=== PATIENT | female | born 1940 | race Caucasian/White ===

== ENCOUNTER 2021-05-20 12:46 | Inpatient (IN) ==
[2021-05-20] MEDS ORDERED: Lactated Ringers 1000 ml BAG 1,000 ML IV ONE (13:32)
[2021-05-20] MEDS ORDERED: Piperacillin/Tazobac ADVAN 3.375 GM in NS 0.9% 100 ml BAG 100 ML IV ONE (13:44)
[2021-05-20] MEDS ORDERED: Iodixanol (CONTRAST) 320 MG/ML 100 ML SDV IV ONE (14:04)
[2021-05-20 14:14] LABS: ABS Lymphocytes 0.8 10^3/ul (1.0-4.8); ABS Monocytes 1.4 10^3/ul (0-0.8); ABS Neutrophils 15.5 10^3/ul (1.5-7.7); Hematocrit 51 % (35-47); Hemoglobin 17.4 g/dL (12.0-16.0); Lymphocyte % 4.5 %; Mean Corpuscular HGB Conc 34 g/dL (31-36); Mean Corpuscular Hemoglobin 31 pg (27-31); Mean Corpuscular Volume 92 fL (80-97); Mean Platelet Volume 8.5 fL (7.4-10.4); Nucleated Red Blood Cells % 0.1; Platelet Count 366 10^3/uL (150-450); Red Blood Count 5.58 10^6 /uL (3.70-4.87); Red Cell Distribution Width 14 % (10-15); White Blood Count 17.7 10^3/uL (3.5-10.8)
[2021-05-20 14:51] LABS: Albumin 4.8 g/dL (3.2-5.2); Albumin/Globulin Ratio 1.9 (1-3); C Reactive Protein 69.67 mg/L (<8.01); Calcium 10.5 mg/dL (8.6-10.3); Globulin 2.5 g/dL (2-4); Potassium 3.7 mmol/L (3.5-5.0); Total Bilirubin 0.8 mg/dL (0.2-1.0); Total Protein 7.3 g/dL (6.4-8.9)
[2021-05-20 15:18] LABS: Activated Partial Thrombo Time 25.9 seconds (26.0-38.0); INR 1.07 (0.86-1.15)
[2021-05-20] MEDS ORDERED: NS 0.9% 1000 ml BAG 1,000 ML IV ONE (15:31)
[2021-05-20] MEDS ORDERED: fentaNYL 100 mcg/2 ml 50 MCG/ML VIAL IV PRN (15:44)
[2021-05-20] MEDS ORDERED: Naloxone 0.4 mg VIAL 0.4 mg/ml 1 ml VIAL IV PRN (15:44)
[2021-05-20] MEDS ORDERED: oxyCODONE/Acetamin 5/325 mg TAB PO PRN (15:44)
[2021-05-20] MEDS ORDERED: Ondansetron 4 mg VIAL 2 MG/ML 2 ml VIAL IV PRN (15:44)
[2021-05-20 16:02] LABS: Rapid COVID-19 Molecular Undetected (Undetected)
[2021-05-20] MEDS ORDERED: Lidocaine 1% VIAL 10 MG/ML VIAL ONE (16:06)
[2021-05-20] MEDS ORDERED: Bupivacaine 0.25% SDV PF 10 ML VIAL INJ ONE (16:07)
[2021-05-20] MEDS ORDERED: Bupivacaine 0.25% w/EPI 10 ML SDV ONE (16:09)
[2021-05-20] MEDS ORDERED: fentaNYL 100 mcg/2 ml 50 MCG/ML VIAL ONE (16:44)
[2021-05-20] MEDS ORDERED: Rocuronium 50 mg VIAL 10 mg/ml 5 ml VIAL (50 mg) ONE (16:44)
[2021-05-20] MEDS ORDERED: Etomidate 20 mg/10 ml 2 MG/ML 10 ml VIAL ONE (16:45)
[2021-05-20] MEDS ORDERED: Etomidate 40 mg/20 ml (2 MG/ML) 20 ml VIAL (40 mg) ONE (16:46)
[2021-05-20] MEDS ORDERED: Propofol 10 MG/ML 20 ML BTL ONE (18:08)
[2021-05-20] MEDS ORDERED: D5W NS 0.9% 20Meq KCL 1000 ml 1,000 ML IV SCH (19:00)
[2021-05-20] MEDS: Acetaminophen IV 1 GM/100ML 100 ML IV SCH (20:57)
[2021-05-20 22:07] LABS: High Sensitivity Troponin 1 Hr 24 pg/mL (<15)
[2021-05-21] MEDS: Acetaminophen IV 1 GM/100ML 100 ML IV SCH ×4 (01:29→19:53)
[2021-05-21 05:15] LABS: Urine Appearance Clear; Urine Bilirubin Negative (Negative); Urine Blood Negative (Negative); Urine Color Yellow; Urine Glucose Negative (Negative); Urine Ketones Negative (Negative); Urine Nitrite Negative (Negative); Urine Protein Negative (Negative); Urine Specific Gravity 1.036 (1.002-1.030); Urine Urobilinogen Negative (Negative)
[2021-05-21 05:46] LABS: ABS Lymphocytes 1.2 10^3/ul (1.0-4.8); ABS Monocytes 0.7 10^3/ul (0-0.8); ABS Neutrophils 8.7 10^3/ul (1.5-7.7); Eosinophil % 0.3 %; Hematocrit 43 % (35-47); Hemoglobin 14.8 g/dL (12.0-16.0); Lymphocyte % 11.1 %; Mean Corpuscular HGB Conc 34 g/dL (31-36); Mean Corpuscular Hemoglobin 32 pg (27-31); Mean Corpuscular Volume 93 fL (80-97); Mean Platelet Volume 8.4 fL (7.4-10.4); Platelet Count 274 10^3/uL (150-450); Red Blood Count 4.68 10^6 /uL (3.70-4.87); Red Cell Distribution Width 14 % (10-15); White Blood Count 10.7 10^3/uL (3.5-10.8)
[2021-05-21] MEDS: Heparin 5000 UNITS/ML 1 mL VIAL SUBCUT SCH ×3 (06:23→21:28)
[2021-05-21] MEDS: D5W NS 0.9% 20Meq KCL 1000 ml 1,000 ML IV SCH (12:16)
[2021-05-21 12:25] LABS: Calcium 8.4 mg/dL (8.6-10.3); Magnesium 2.1 mg/dL (1.9-2.7); Potassium 3.3 mmol/L (3.5-5.0); eGFR CKD-EPI 62.5 (>60)
[2021-05-21] MEDS: Ondansetron 4 mg VIAL 2 MG/ML 2 ml VIAL IV PRN (19:49)
[2021-05-22] MEDS: Acetaminophen IV 1 GM/100ML 100 ML IV SCH ×4 (02:39→21:20)
[2021-05-22] MEDS: D5W NS 0.9% 20Meq KCL 1000 ml 1,000 ML IV SCH ×2 (04:48→19:44)
[2021-05-22] MEDS: Heparin 5000 UNITS/ML 1 mL VIAL SUBCUT SCH ×3 (04:48→21:19)
[2021-05-22 05:00] LABS: ABS Eosinophils 0.1 10^3/ul (0-0.6); ABS Lymphocytes 1.3 10^3/ul (1.0-4.8); ABS Monocytes 0.6 10^3/ul (0-0.8); ABS Neutrophils 5.5 10^3/ul (1.5-7.7); Eosinophil % 1.3 %; Hematocrit 36 % (35-47); Hemoglobin 12.1 g/dL (12.0-16.0); Lymphocyte % 17.4 %; Mean Corpuscular HGB Conc 34 g/dL (31-36); Mean Corpuscular Hemoglobin 32 pg (27-31); Mean Corpuscular Volume 94 fL (80-97); Mean Platelet Volume 8.3 fL (7.4-10.4); Platelet Count 234 10^3/uL (150-450); Red Cell Distribution Width 14 % (10-15); White Blood Count 7.5 10^3/uL (3.5-10.8)
[2021-05-22 05:17] LABS: Calcium 7.8 mg/dL (8.6-10.3); Potassium 3.2 mmol/L (3.5-5.0)
[2021-05-22] MEDS: KCL 10 MEQ/50 ML IVPREMIX 10 MEQ/50 ML BAG IV SCH ×3 (09:31→12:04)
[2021-05-23] MEDS: Acetaminophen IV 1 GM/100ML 100 ML IV SCH ×3 (03:06→16:49)
[2021-05-23] MEDS: Heparin 5000 UNITS/ML 1 mL VIAL SUBCUT SCH ×3 (05:26→23:09)
[2021-05-23 05:55] LABS: ABS Eosinophils 0.2 10^3/ul (0-0.6); ABS Lymphocytes 1.3 10^3/ul (1.0-4.8); ABS Monocytes 0.4 10^3/ul (0-0.8); ABS Neutrophils 3.7 10^3/ul (1.5-7.7); Eosinophil % 3.5 %; Hematocrit 35 % (35-47); Hemoglobin 11.5 g/dL (12.0-16.0); Lymphocyte % 23.2 %; Mean Corpuscular HGB Conc 33 g/dL (31-36); Mean Corpuscular Hemoglobin 31 pg (27-31); Mean Corpuscular Volume 94 fL (80-97); Mean Platelet Volume 8.5 fL (7.4-10.4); Platelet Count 239 10^3/uL (150-450); Red Blood Count 3.66 10^6 /uL (3.70-4.87); Red Cell Distribution Width 13 % (10-15); White Blood Count 5.6 10^3/uL (3.5-10.8)
[2021-05-23 06:24] LABS: Calcium 7.6 mg/dL (8.6-10.3); Potassium 3.7 mmol/L (3.5-5.0)
[2021-05-23 06:30] LABS: eGFR CKD-EPI 89.5 (>60)
[2021-05-23] MEDS: Ondansetron 4 mg VIAL 2 MG/ML 2 ml VIAL IV PRN (10:38)
[2021-05-23] MEDS: D5W NS 0.9% 20Meq KCL 1000 ml 1,000 ML IV SCH (13:52)
[2021-05-24] MEDS: Heparin 5000 UNITS/ML 1 mL VIAL SUBCUT SCH (06:21)
[2021-05-24] MEDS ORDERED: Benzocaine/Menthol LOZ MT PRN (10:42)
[2021-05-24 11:35] VITALS: BP 148/84
== END 2021-05-24 12:39 | disposition home or self-care (01) | DRG 351 ==
LOC: ED 12:46 → EDHOLD 12:46 → SUATTDRO 15:26 → SSU 16:16
PROVIDERS: ADMIT Surgery; ATTEND Surgery